=== PATIENT | male | born 1935 | race Hispanic/Latino ===

== ENCOUNTER 2017-06-09 08:32 | Inpatient (IN) | payer MEDICARE ==
[~2017-06-09] VITALS: Ht 170.2 cm; Wt 70.3 kg
[~2017-06-09 08:32] MED LIST: AMLO10TA2; ASPI-555 PO; CITA-106; DOXA1TAB2; FOLI1TAB15 PO; GABA-529; ISOS30TA6; LABE100T5; LEVO25TA54; OMEP40CA37; PHENY100; VALS320T2
[2017-06-09 09:04] LABS: APPEARANCE,URINE Clear (CLEAR); BILIRUBIN,URINE Negative (NEGATIVE); COLOR,URINE Yellow (YELLOW); GLUCOSE, URINE (UA) Negative (NEGATIVE); KETONES,URINE Negative (NEGATIVE); LEUKOCYTE ESTERASE ,URINE Small (NEGATIVE); NITRATE,URINE Negative (NEGATIVE); OCCULT BLOOD,URINE Nonhemolyzed Trace (NEGATIVE); PH,URINE 6.5 (5.0-8.0); PROTEIN,URINE Negative (NEGATIVE); UROBILINOGEN,URINE 0.2 mg/dL (0.2-1.0)
[2017-06-09 09:09] LABS: BACTERIA,URINE Rare /HPF (None Seen); SQUAMOUS EPITHELIAL CELL,UR Rare /HPF (0-2); WBC,URINE 0-1 /HPF (0-1)
[2017-06-09 09:53] LABS: BASOPHILS % (AUTO) 1.2 % (0.0-5.0); EOSINOPHILS % (AUTO) 2.9 % (0.0-8.0); HEMATOCRIT 41.5 % (42-54); LYMPHOCYTES % (AUTO) 21.3 % (21.0-51.0); MEAN CORPUSCULAR HEMOGLOBIN 31.6 pg (27.0-33.0); MEAN CORPUSCULAR HGB CONC 34.3 g/dL (32.0-36.0); MEAN CORPUSCULAR VOLUME 92.1 fL (79-99); MONOCYTES % (AUTO) 6.9 % (3.0-13.0); NEUTROPHILS % (AUTO) 67.7 % (40.0-77.0); NUCLEATED RED BLOOD CELLS 0.1 % (0.0-0.19); PLATELET COUNT (AUTO) 324 K/uL (130-400); RED BLOOD CELL COUNT(AUTO) 4.51 MIL/uL (4.50-6.20); RED CELL DISTRIBUTION WIDTH 12.9 % (11.0-15.5); WHITE BLOOD COUNT (AUTO) 9.4 K/uL (4.8-10.8)
[2017-06-09 10:18] LABS: CREATININE 0.9 mg/dL (0.5-1.5)
[2017-06-09] MEDS ORDERED: CEFTRIAXONE SODIUM 1 GM ONE (11:05)
[2017-06-09] MEDS ORDERED: SODIUM CHLORIDE 0.9% 1000ML 1,000 ML IV ONE (11:26)
[2017-06-09 12:39] VITALS: BP 162/70
[2017-06-09] MEDS ORDERED: LISI-613 PO (12:41)
[2017-06-09] MEDS ORDERED: CYAN10009 PO (12:41)
[2017-06-09 16:00] VITALS: BP 145/62
[2017-06-09 20:00] VITALS: BP 160/64
[2017-06-09 22:25] VITALS: BP 160/76
[2017-06-09] MEDS: ISOSORBIDE MONO 30MG TAB SR PO SCH (22:31)
[2017-06-09] MEDS: FOLIC ACID 1 MG TABLET PO SCH (22:31)
[2017-06-09] MEDS: LABETALOL HCL 100 MG TABLET PO SCH (22:32)
[2017-06-09] MEDS: GABAPENTIN 100 MG CAPSULE PO SCH (22:32)
[2017-06-09] MEDS: AMLODIPINE BESYLATE 5 MG TAB PO SCH (22:32)
[2017-06-09] MEDS: LISINOPRIL 20 MG TABLET PO SCH (22:32)
[2017-06-09] MEDS: SODIUM CHLORIDE 0.9% 1000ML 1,000 ML IV SCH (22:33)
[2017-06-10] VITALS (7 sets, daily range): BP systolic 131–159; BP diastolic 64–85
[2017-06-10] MEDS: SODIUM CHLORIDE 0.9% 1000ML 1,000 ML IV SCH ×3 (05:06→20:48)
[2017-06-10] MEDS: LEVOTHYROXINE 25 MCG TABLET PO SCH (06:41)
[2017-06-10] MEDS: CEFTRIAXONE SODIUM 1 GM IVP SCH (08:32)
[2017-06-10] MEDS: ASPIRIN 81 MG EC TAB PO SCH (08:33)
[2017-06-10] MEDS: PANTOPRAZOLE SODIUM 40 MG TABLET.DR PO SCH (08:33)
[2017-06-10] MEDS: DOXAZOSIN MESYLATE 2 MG TABLET PO SCH (08:33)
[2017-06-10] MEDS: PHENYTOIN SODIUM 100 MG ERCAP PO SCH (08:34)
[2017-06-10] MEDS: GABAPENTIN 100 MG CAPSULE PO SCH ×2 (08:34→20:43)
[2017-06-10] MEDS: CYANOCOBALAMIN (VITAMIN B-12) 1,000 MCG TABLET PO SCH (08:34)
[2017-06-10] MEDS: LABETALOL HCL 100 MG TABLET PO SCH ×2 (08:34→20:43)
[2017-06-10] MEDS: ISOSORBIDE MONO 30MG TAB SR PO SCH (20:42)
[2017-06-10] MEDS: FOLIC ACID 1 MG TABLET PO SCH (20:42)
[2017-06-10] MEDS: AMLODIPINE BESYLATE 5 MG TAB PO SCH (20:43)
[2017-06-10] MEDS: LISINOPRIL 20 MG TABLET PO SCH (20:44)
[2017-06-11] VITALS (27 sets, daily range): BP systolic 134–207; BP diastolic 55–89
[2017-06-11 06:40] LABS: INR 0.97 (0.85-1.15); PARTIAL THROMBOPLASTIN TIME 27.3 SEC (26.3-35.5); PROTHROMBIN TIME 10.2 SEC (9.6-11.6)
[2017-06-11] MEDS: LEVOTHYROXINE 25 MCG TABLET PO SCH (07:30)
[2017-06-11] MEDS: GABAPENTIN 100 MG CAPSULE PO SCH ×2 (09:00→21:08)
[2017-06-11] MEDS: CEFTRIAXONE SODIUM 1 GM IVP SCH (10:34)
[2017-06-11] MEDS: LABETALOL HCL 100 MG TABLET PO SCH ×2 (10:34→21:08)
[2017-06-11] MEDS: PHENYTOIN SODIUM 100 MG ERCAP PO SCH (10:34)
[2017-06-11] MEDS ORDERED: LACTATED RINGERS 1000ML 1,000 ML IV ONE (12:34)
[2017-06-11] MEDS ORDERED: PROPOFOL 10 MG/ML 20ML VIAL IV ONE (12:54)
[2017-06-11] MEDS ORDERED: FENTANYL CITRATE PF 50 MCG/1 ML 2ML VIAL ONE (12:57)
[2017-06-11] MEDS ORDERED: ISOVUE-370 50ML VIAL IV ONE (13:02)
[2017-06-11] MEDS ORDERED: HYDRALAZINE HCL 20 MG/ML VIAL ONE (13:54)
[2017-06-11] MEDS: DOXAZOSIN MESYLATE 2 MG TABLET PO SCH (15:04)
[2017-06-11] MEDS: PANTOPRAZOLE SODIUM 40 MG TABLET.DR PO SCH (15:04)
[2017-06-11] MEDS: CYANOCOBALAMIN (VITAMIN B-12) 1,000 MCG TABLET PO SCH (15:04)
[2017-06-11] MEDS: ASPIRIN 81 MG EC TAB PO SCH (15:04)
[2017-06-11] MEDS ORDERED: ACETAMINOPHEN-CODEINE 300/30MG TAB PO PRN (15:15)
[2017-06-11] MEDS: ISOSORBIDE MONO 30MG TAB SR PO SCH (21:07)
[2017-06-11] MEDS: FOLIC ACID 1 MG TABLET PO SCH (21:07)
[2017-06-11] MEDS: AMLODIPINE BESYLATE 5 MG TAB PO SCH (21:07)
[2017-06-11] MEDS: LISINOPRIL 20 MG TABLET PO SCH (21:08)
[2017-06-12 03:49] VITALS: BP 159/62
[2017-06-12 04:38] LABS: HEMATOCRIT 39.4 % (42-54); MEAN CORPUSCULAR HEMOGLOBIN 31.6 pg (27.0-33.0); MEAN CORPUSCULAR HGB CONC 34.4 g/dL (32.0-36.0); MEAN CORPUSCULAR VOLUME 91.8 fL (79-99); PLATELET COUNT (AUTO) 311 K/uL (130-400); RED BLOOD CELL COUNT(AUTO) 4.29 MIL/uL (4.50-6.20); RED CELL DISTRIBUTION WIDTH 12.7 % (11.0-15.5)
[2017-06-12 04:42] LABS: CREATININE 0.8 mg/dL (0.5-1.5); POTASSIUM 3.6 mmol/L (3.5-5.1)
[2017-06-12] MEDS: LEVOTHYROXINE 25 MCG TABLET PO SCH (06:42)
[2017-06-12] MEDS: CEFTRIAXONE SODIUM 1 GM IVP SCH (09:56)
[2017-06-12] MEDS: CYANOCOBALAMIN (VITAMIN B-12) 1,000 MCG TABLET PO SCH (09:57)
[2017-06-12] MEDS: LABETALOL HCL 100 MG TABLET PO SCH (09:57)
[2017-06-12] MEDS: ASPIRIN 81 MG EC TAB PO SCH (09:57)
[2017-06-12] MEDS: PHENYTOIN SODIUM 100 MG ERCAP PO SCH (09:57)
[2017-06-12] MEDS: GABAPENTIN 100 MG CAPSULE PO SCH (09:57)
[2017-06-12] MEDS: PANTOPRAZOLE SODIUM 40 MG TABLET.DR PO SCH (09:57)
[2017-06-12] MEDS: DOXAZOSIN MESYLATE 2 MG TABLET PO SCH (09:57)
== END 2017-06-12 11:05 | disposition home or self-care (01) | DRG 697 ==
LOC: EDH 08:32 → OBSVTOIN 10:55 → 3BH 10:55
PROVIDERS: ADMIT Family Medicine; ATTEND Family Medicine
PROC: 0T9B80Z Drainage of Bladder with Drainage Device, Via Natural or Artificial Opening Endoscopic (ICD-10-PCS; 2017-06-11)
PROC: 0T7D8ZZ Dilation of Urethra, Via Natural or Artificial Opening Endoscopic (ICD-10-PCS; principal; 2017-06-11 13:14)
DX: N35.9 Urethral stricture, unspecified (principal); G40.909 Epilepsy, unspecified, not intractable, without status epilepticus; E03.9 Hypothyroidism, unspecified; R33.8 Other retention of urine; N40.1 Benign prostatic hyperplasia with lower urinary tract symptoms; E78.5 Hyperlipidemia, unspecified; I10 Essential (primary) hypertension; I25.10 Atherosclerotic heart disease of native coronary artery without angina pectoris; I49.3 Ventricular premature depolarization; Z85.46 Personal history of malignant neoplasm of prostate; Z86.73 Personal history of transient ischemic attack (TIA), and cerebral infarction without residual deficits; Z90.79 Acquired absence of other genital organ(s); Z95.0 Presence of cardiac pacemaker
CPT/HCPCS: 36415; 74176; 76000; 80048; 81001; 84153; 85025; 85027; 85610; 85730; 87088; 93005; 93306; A4218; A4354; C1758; C1769; J0360; J0696; J2704; J3010; J7030; J7120; Q9967

== ENCOUNTER 2018-07-21 06:54 | Observation (INO) | payer MEDICARE ==
[~2018-07-21] VITALS: Ht 167.6 cm; Wt 66.1 kg
[~2018-07-21 06:54] MED LIST changes: -AMLO10TA2; +AMLO10TA7; -CITA-106; +CYAN10009 PO; +LISI-613 PO
[2018-07-21] MEDS ORDERED: ASPIRIN 325 MG TABLET ONE (07:21)
[2018-07-21 07:29] LABS: BASOPHILS % (AUTO) 1.1 % (0.0-5.0); EOSINOPHILS % (AUTO) 5.5 % (0.0-8.0); HEMATOCRIT 39.4 % (42-54); LYMPHOCYTES % (AUTO) 22.1 % (21.0-51.0); MEAN CORPUSCULAR HEMOGLOBIN 31.6 pg (27.0-33.0); MEAN CORPUSCULAR HGB CONC 33.6 g/dL (32.0-36.0); MONOCYTES % (AUTO) 8.2 % (3.0-13.0); NEUTROPHILS % (AUTO) 63.1 % (40.0-77.0); PLATELET COUNT (AUTO) 276 K/uL (130-400); RED BLOOD CELL COUNT(AUTO) 4.19 MIL/uL (4.50-6.20); RED CELL DISTRIBUTION WIDTH 13.3 % (11.0-15.5); WHITE BLOOD COUNT (AUTO) 7.9 K/uL (4.8-10.8)
[2018-07-21 07:34] LABS: POTASSIUM 3.8 mmol/L (3.5-5.1)
[2018-07-21 07:40] LABS: ALBUMIN 3.8 g/dL (3.5-5.0); BILIRUBIN,TOTAL 0.2 mg/dL (0.2-1.0); TOTAL PROTEIN, SERUM 7.8 g/dL (6.0-8.3)
[2018-07-21 08:31] LABS: B-TYPE NATRIURETIC PEPTIDE 146 pg/mL (0-100)
[2018-07-21] MEDS ORDERED: NITROGLYCERIN 1GM/1 INCH PACKET TD ONE (09:47)
[2018-07-21] MEDS: ENOXAPARIN SODIUM 30 MG/0.3 ML SQ SCH (11:37)
[2018-07-21] MEDS: SODIUM CHLORIDE 0.9% 1000ML 1,000 ML IV SCH (11:45)
[2018-07-21] MEDS ORDERED: NITROGLYCERIN 1GM/1 INCH PACKET TD PRN (11:45)
[2018-07-21] MEDS ORDERED: ENOXAPARIN SODIUM 30 MG/0.3 ML SQ ONE (12:43)
[2018-07-21 13:20] LABS: CREATINE KINASE, TOTAL 123 U/L (21-232); MYOGLOBIN 96 ng/mL (10-92); TROPONIN I < 0.04 ng/mL (0.00-0.06)
[2018-07-21 18:00] VITALS: BP 193/93
--- NOTE | 2018-07-21 19:04 | NUR ---
CARDIOLOGY CONSULT Dr. Mcnair came to evaluate patient./ Discussed with him plan of care; patient and family verbalized and demonstrated understanding.
[2018-07-21 19:27] VITALS: BP 155/76
[2018-07-21] MEDS ORDERED: ISOSORBIDE MONO 60 MG TAB.SR PO SCH (19:30)
[2018-07-21 19:59] LABS: CREATINE KINASE, TOTAL 107 U/L (21-232); MYOGLOBIN 78 ng/mL (10-92); TROPONIN I < 0.04 ng/mL (0.00-0.06)
[2018-07-21] MEDS ORDERED: CITA-107 PO (20:47)
[2018-07-21] MEDS ORDERED: LABETALOL HCL 100 MG TABLET PO SCH (21:00)
[2018-07-21] MEDS ORDERED: ISOSORBIDE MONONITRATE 20 MG TABLET PO SCH (21:00)
[2018-07-21] MEDS: VALSARTAN 320 MG PO SCH (21:00)
--- NOTE | 2018-07-21 22:00 | NUR ---
REMINDED PATIENT NPO AFTER MIDNIGHT, STRESS TEST IN A.M. PATIENT VERBALIZED UNDERSTANDING.
[2018-07-21] MEDS: PHENYTOIN SODIUM 100 MG ERCAP PO SCH (23:04)
[2018-07-21] MEDS: GABAPENTIN 100 MG CAPSULE PO SCH (23:05)
[2018-07-21 23:20] VITALS: BP 143/70
[2018-07-22] MEDS: METOPROLOL TARTRATE 25 MG TAB PO SCH ×4 (00:39→19:24)
[2018-07-22 03:55] VITALS: BP 132/82
[2018-07-22] MEDS: METOPROLOL TARTRATE 50 MG TAB PO SCH ×4 (06:00→18:00)
[2018-07-22] MEDS: LEVOTHYROXINE 50 MCG TABLET PO SCH (06:46)
[2018-07-22] MEDS: SODIUM CHLORIDE 0.9% 1000ML 1,000 ML IV SCH ×2 (06:49→21:05)
[2018-07-22 07:56] VITALS: BP 138/77
[2018-07-22] MEDS: ISOSORBIDE MONO 60 MG TAB.SR PO SCH (08:27)
[2018-07-22] MEDS: CITALOPRAM 20 MG TABLET PO SCH (08:27)
[2018-07-22] MEDS: ASPIRIN 81 MG EC TAB PO SCH (08:27)
[2018-07-22] MEDS: FOLIC ACID 1 MG TABLET PO SCH (08:27)
[2018-07-22] MEDS ORDERED: LISINOPRIL 20 MG TABLET PO SCH (09:00)
[2018-07-22] MEDS: GABAPENTIN 100 MG CAPSULE PO SCH ×2 (09:05→20:45)
[2018-07-22] MEDS: DOXAZOSIN MESYLATE 2 MG TABLET PO SCH (09:05)
[2018-07-22] MEDS: PANTOPRAZOLE SODIUM 40 MG TABLET.DR PO SCH (09:05)
[2018-07-22] MEDS: PHENYTOIN SODIUM 100 MG ERCAP PO SCH ×2 (09:05→20:45)
[2018-07-22] MEDS: ENOXAPARIN SODIUM 30 MG/0.3 ML SQ SCH (09:07)
--- NOTE | 2018-07-22 10:30 | NUR ---
REPORT TO Dewayne CHOUDHARY RN.
--- NOTE | 2018-07-22 10:45 | NUR ---
BILLYISCAN Patient taken for test at this time.
[2018-07-22] MEDS: PHARMACY COMMUNICATION MISC SCH ×2 (11:00→19:00)
[2018-07-22] MEDS: REGADENOSON 0.4 MG/5 ML PF SYG IVP SCH ×2 (11:30→14:14)
[2018-07-22 12:52] VITALS: BP 140/80
[2018-07-22 16:22] VITALS: BP 124/76
[2018-07-22 19:36] VITALS: BP 135/63
[2018-07-22] MEDS: VALSARTAN 320 MG PO SCH (20:32)
[2018-07-22 23:46] VITALS: BP 145/75
[2018-07-23 03:25] VITALS: BP 162/89
[2018-07-23] MEDS: LEVOTHYROXINE 50 MCG TABLET PO SCH (06:12)
[2018-07-23 07:57] VITALS: BP 157/92
--- NOTE | 2018-07-23 08:00 | NUR ---
ASSESSMENT PT IS AAOX4 DENIES CP DENIES SOB DENIES NV NO COMPLAINTS TOLERATED MEAL AND MEDS. PLAN DC HOME TODAY.
[2018-07-23] MEDS: ENOXAPARIN SODIUM 30 MG/0.3 ML SQ SCH (08:16)
[2018-07-23] MEDS: ISOSORBIDE MONO 60 MG TAB.SR PO SCH (08:17)
[2018-07-23] MEDS: GABAPENTIN 100 MG CAPSULE PO SCH (08:17)
[2018-07-23] MEDS: CITALOPRAM 20 MG TABLET PO SCH (08:17)
[2018-07-23] MEDS: ASPIRIN 81 MG EC TAB PO SCH (08:17)
[2018-07-23] MEDS: DOXAZOSIN MESYLATE 2 MG TABLET PO SCH (08:17)
[2018-07-23] MEDS: PHENYTOIN SODIUM 100 MG ERCAP PO SCH (08:17)
[2018-07-23] MEDS: PANTOPRAZOLE SODIUM 40 MG TABLET.DR PO SCH (08:17)
[2018-07-23] MEDS: FOLIC ACID 1 MG TABLET PO SCH (08:17)
[2018-07-23] MEDS ORDERED: METOPROLOL TARTRATE 50 MG TAB PO SCH (09:00)
[2018-07-23 09:52] VITALS: BP 142/76
--- NOTE | 2018-07-23 10:00 | NUR ---
NASUEA WITH VOMITING VS BP 142/[address] SHERIFF MADE AWARE. ORDERS RECEIVED, PLAN DC HOME LATER THIS AFTERNOON.
[2018-07-23] MEDS ORDERED: ONDANSETRON HCL 4 MG/2 ML VIAL IVP SCH (10:15)
[2018-07-23 11:29] VITALS: BP 134/60
--- NOTE | 2018-07-23 12:55 | NUR ---
DC PLAN VISITED WITH PATIENT. PATIENT LIVES WITH ALONE. INDEPENDENT ABLE TO PERFORM ADL'S. PATIENT HAS NO SERVICES OR DME'S. FEELS SAFE TO RETURN HOME. Addendum: 07/23/18 at 1256 by GRECIA CONCEPCION RN CM Amended: Links added.
--- NOTE | 2018-07-23 13:00 | NUR ---
STATUS NAUSEA SUBSIDED, NO VOMITING.
--- NOTE | 2018-07-23 13:26 | NUR ---
DC HOME PT AND FAMILY VERBALIZE DC INSTRUCTIONS UNDERSTANDING. AGREE TO TAKE SAME HOME MEDS, NO SCRIPTS. AGREE TO FOLLOW UP WITH DR SHERIFF ON SATURDAY AND DR LAWSON OUTPATIENT. ALL QUESTIONS ANSWERED, PIV REMOVED CATH TIP INTACT. TELE PACK REMOVED. ALL BELONGINGS GATHERED. ASSISTED DOWN VIA WC TO VEHICLE.
== END 2018-07-23 13:54 | disposition home or self-care (01) ==
LOC: EDH 06:54 → INTOOBSV 10:30 → EDHIP 10:30 → 2AH 17:34
PROVIDERS: ADMIT Family Medicine; ATTEND Family Medicine
DX: R07.89 Other chest pain (principal); I10 Essential (primary) hypertension; E03.9 Hypothyroidism, unspecified; E78.5 Hyperlipidemia, unspecified; G40.909 Epilepsy, unspecified, not intractable, without status epilepticus; I35.0 Nonrheumatic aortic (valve) stenosis; I49.3 Ventricular premature depolarization; N40.0 Benign prostatic hyperplasia without lower urinary tract symptoms; Z85.46 Personal history of malignant neoplasm of prostate; Z95.0 Presence of cardiac pacemaker
CPT/HCPCS: 36415; 71045; 78452; 80053; 82550 ×3; 83874 ×2; 83880; 84484 ×3; 85025; 93005 ×3; 93017; 93306; 96372; 96374; 99284; A9500 ×2; G0378 ×48; J1650 ×2; J2405; J2785; J7030

== ENCOUNTER 2019-02-11 12:49 | Emergency (ER) | payer MEDICARE ==
[~2019-02-11 12:49] MED LIST changes: +CITA-107 PO; +CYAN-52 PO; -CYAN10009 PO; +OMEP40CA13; -OMEP40CA37
[2019-02-11] MEDS ORDERED: ONDANSETRON HCL 4 MG/2 ML VIAL ONE (13:13)
[2019-02-11 13:22] LABS: BASOPHILS % (AUTO) 1.1 % (0.0-5.0); EOSINOPHILS % (AUTO) 6.1 % (0.0-8.0); HEMATOCRIT 44.8 % (42-54); LYMPHOCYTES % (AUTO) 32.3 % (21.0-51.0); MEAN CORPUSCULAR HEMOGLOBIN 32.7 pg (27.0-33.0); MEAN CORPUSCULAR HGB CONC 34.1 g/dL (32.0-36.0); MEAN CORPUSCULAR VOLUME 96.1 fL (79-99); MONOCYTES % (AUTO) 7.5 % (3.0-13.0); PLATELET COUNT (AUTO) 284 K/uL (130-400); RED BLOOD CELL COUNT(AUTO) 4.67 MIL/uL (4.50-6.20); WHITE BLOOD COUNT (AUTO) 9.3 K/uL (4.8-10.8)
[2019-02-11 13:28] LABS: CREATININE 1.1 mg/dL (0.5-1.5); POTASSIUM 3.9 mmol/L (3.5-5.1)
[2019-02-11 13:34] LABS: ALBUMIN 3.8 g/dL (3.5-5.0); BILIRUBIN,TOTAL 0.3 mg/dL (0.2-1.0)
[2019-02-11 13:39] LABS: INR 0.98 (0.85-1.15); PARTIAL THROMBOPLASTIN TIME 23.7 SEC (26.3-35.5); PROTHROMBIN TIME 10.3 SEC (9.6-11.6)
== END 2019-02-11 16:15 | disposition home or self-care (01) ==
LOC: EDH 12:49
DX: R53.1 Weakness (principal); R42 Dizziness and giddiness; R11.2 Nausea with vomiting, unspecified; I25.10 Atherosclerotic heart disease of native coronary artery without angina pectoris; E78.5 Hyperlipidemia, unspecified; I10 Essential (primary) hypertension; Z86.73 Personal history of transient ischemic attack (TIA), and cerebral infarction without residual deficits; Z87.891 Personal history of nicotine dependence
CPT/HCPCS: 36415; 70450; 71045; 80053; 82550; 84484; 85025; 85610; 85730; 93005; 96374; 99285; J2405

== ENCOUNTER 2019-10-28 19:34 | Inpatient (IN) | payer MEDICARE ==
[~2019-10-28] VITALS: Ht 170.2 cm; Wt 63.3 kg
[~2019-10-28 19:34] MED LIST changes: -ASPI-555 PO; +ASPI-556 PO
[2019-10-28 20:22] LABS: BASOPHILS % (AUTO) 0.2 % (0.0-5.0); HEMATOCRIT 48.6 % (42-54); LYMPHOCYTES % (AUTO) 6.9 % (21.0-51.0); MEAN CORPUSCULAR VOLUME 91.2 fL (79-99); MONOCYTES % (AUTO) 3.2 % (3.0-13.0); NEUTROPHILS % (AUTO) 89.1 % (40.0-77.0); PLATELET COUNT (AUTO) 168 K/uL (130-400); RED BLOOD CELL COUNT(AUTO) 5.33 MIL/uL (4.50-6.20); RED CELL DISTRIBUTION WIDTH 12.6 % (11.0-15.5)
[2019-10-28 20:34] LABS: POTASSIUM 3.9 mmol/L (3.5-5.1)
[2019-10-28 20:35] LABS: INR 1.11 (0.85-1.15); PARTIAL THROMBOPLASTIN TIME 29.1 SEC (26.3-35.5); PROTHROMBIN TIME 11.9 SEC (9.6-11.6)
[2019-10-28 20:38] LABS: ALBUMIN 2.4 g/dL (3.5-5.0); BILIRUBIN,TOTAL 1.1 mg/dL (0.2-1.0); TOTAL PROTEIN, SERUM 8.2 g/dL (6.0-8.3)
[2019-10-28] MEDS ORDERED: DEXAMETHASONE SOD PHOSPHATE 4 MG/ML 1ML VIAL ONE (21:00)
[2019-10-28] MEDS ORDERED: CEFTRIAXONE SODIUM 1 GM ONE (21:00)
[2019-10-28] MEDS ORDERED: SODIUM CHLORIDE 0.9% 100 ML IV ONE (21:01)
[2019-10-28] MEDS ORDERED: AZITHROMYCIN 500MG+NS 250ML 250 ML IV ONE ×2 (21:08→21:29)
[2019-10-28] MEDS: LACTATED RINGERS 1000ML 1,000 ML IV SCH (22:34)
[2019-10-28] MEDS ORDERED: NITROGLYCERIN 0.4 MG SL TAB SL PRN (22:45)
[2019-10-28] MEDS ORDERED: LACTULOSE 20 GM/30 ML UDCUP PO PRN (22:45)
[2019-10-28] MEDS ORDERED: MAG HYDROX/AL HYDROX/SIMETH ES 30 ML SUSP UDCUP PO PRN (22:45)
[2019-10-28] MEDS ORDERED: ONDANSETRON HCL 4 MG/2 ML VIAL IV PRN (22:45)
[2019-10-28] MEDS ORDERED: DIPHENHYDRAMINE HCL 25 MG CAPSULE PO PRN (22:45)
[2019-10-28] MEDS ORDERED: MORPHINE SULFATE 4 MG/1ML SYG IV PRN (22:45)
[2019-10-28] MEDS ORDERED: MAG HYDROX/AL HYDROX/SIMETH 30 ML, LIDOCAINE HCL 2% VISCOUS 30 ML, DIPHENHYDRAMINE HCL ... PO PRN ×3 (22:45)
[2019-10-28] MEDS ORDERED: DiphenhydrAMINE HCL 50 MG/ML VIAL IV PRN (22:45)
[2019-10-28] MEDS ORDERED: MORPHINE SULFATE 2 MG/ML 1ML SYG IV PRN (22:45)
[2019-10-28] MEDS ORDERED: ZOLPIDEM TARTRATE 5 MG TAB PO PRN (22:45)
[2019-10-28] MEDS ORDERED: LIDOCAINE HCL 2% VISCOUS 30 ML, MAG HYDROX/AL HYDROX/SIMETH 30 ML, BELLADONNA-PHENOBARB... PO PRN ×3 (22:45)
[2019-10-28] MEDS ORDERED: GUAIFENESIN-DM 200/20 MG 10 ML PO PRN (22:45)
[2019-10-28] MEDS ORDERED: ACETAMINOPHEN 325 MG TAB PO PRN ×2 (22:45)
[2019-10-28 22:48] LABS: CRP QUANTITATIVE 254.6 mg/L (0.00-9.0)
[2019-10-28] MEDS ORDERED: IOHEXOL-350 75 ML VIAL IV ONE (23:05)
[2019-10-29] VITALS (7 sets, daily range): BP systolic 105–154; BP diastolic 69–98
[2019-10-29 00:02] LABS: TROPONIN I 0.57 ng/mL (0.00-0.06)
[2019-10-29] MEDS ORDERED: ASPIRIN 325MG EC TAB 325 MG TABLET.DR PO SCH ×2 (01:15→09:00)
[2019-10-29] MEDS ORDERED: HYDRALAZINE HCL 20 MG/ML VIAL IV PRN (01:15)
[2019-10-29] MEDS ORDERED: DEXAMETHASONE SOD PHOSPHATE 4 MG/ML 1ML VIAL IVP SCH (02:00)
[2019-10-29] MEDS ORDERED: ERGOCALCIFEROL (VITAMIN D2) 50,000 UNIT CAPSULE PO ONE (02:00)
[2019-10-29] MEDS ORDERED: CEFTRIAXONE SODIUM 1 GM IVP SCH (02:00)
[2019-10-29] MEDS ORDERED: PHARMACY COMMUNICATION**REMDESIVIR ORDER MISC SCH (03:15)
[2019-10-29 06:29] LABS: POTASSIUM 3.4 mmol/L (3.5-5.1)
[2019-10-29] MEDS: LACTATED RINGERS 1000ML 1,000 ML IV SCH (06:30)
[2019-10-29] MEDS: LEVOTHYROXINE 50 MCG TABLET PO SCH (06:30)
[2019-10-29 06:46] LABS: ALBUMIN 2.5 g/dL (3.5-5.0); CREATININE 0.8 mg/dL (0.5-1.5); PHENYTOIN (DILANTIN) 1.3 mcg/mL (10.0-20.0); THYROID STIMULATING HORMONE 2.83 uIU/mL (0.36-3.74); TOTAL PROTEIN, SERUM 8.4 g/dL (6.0-8.3)
[2019-10-29 06:53] LABS: CRP QUANTITATIVE 16.6 mg/L (0.00-9.0)
[2019-10-29 07:02] LABS: TROPONIN I 0.54 ng/mL (0.00-0.06)
[2019-10-29] MEDS ORDERED: POTASSIUM CHLORIDE 10% ELIXIR 20 MEQ/15 ML UDCUP PO PRN (07:15)
[2019-10-29] MEDS ORDERED: LIDOCAINE HCL-MPF 1% 2ML VIAL IV PRN (07:15)
[2019-10-29] MEDS ORDERED: POTASSIUM CHLORIDE 20MEQ/100ML 100 ML IV PRN (07:15)
[2019-10-29] MEDS ORDERED: POTASSIUM CHLORIDE 20 MEQ ERTAB PO PRN (07:15)
--- NOTE | 2019-10-29 07:38 | NUR ---
reported to dr [place]driguez [place] [id number] and total ck of 521. ordered lovenox 0.5 per kg.
[2019-10-29] MEDS ORDERED: PHARMACY COMMUNICATION MISC STA (07:48)
[2019-10-29] MEDS ORDERED: ENOXAPARIN SODIUM 30 MG/0.3 ML SQ SCH (08:45)
[2019-10-29] MEDS ORDERED: ENOXAPARIN SODIUM 80 MG/0.8 ML SQ SCH (09:00)
[2019-10-29] MEDS ORDERED: ENOXAPARIN SODIUM 40 MG/0.4 ML SYRINGE SQ SCH (09:00)
[2019-10-29] MEDS: FAMOTIDINE/PF 20 MG/2 ML VIAL IV SCH ×2 (09:14→22:21)
[2019-10-29] MEDS: DEXAMETHASONE SOD PHOSPHATE 4 MG/ML 1ML VIAL IVP SCH (09:14)
[2019-10-29] MEDS: ZINC SULFATE 220 CAPSULE PO SCH (09:15)
[2019-10-29] MEDS: ASCORBIC ACID 500 MG TAB PO SCH (09:15)
[2019-10-29] MEDS: ASPIRIN 81MG TAB.CHEW PO SCH (09:15)
[2019-10-29] MEDS ORDERED: PHARMACY COMMUNICATION MISC SCH (09:15)
[2019-10-29] MEDS: DOXYCYCLINE HYCLATE 100 MG TABLET PO SCH ×2 (09:15→22:21)
[2019-10-29] MEDS: CEFTRIAXONE SODIUM 1 GM IVP SCH ×2 (09:16→22:21)
[2019-10-29] MEDS ORDERED: ERGOCALCIFEROL (VITAMIN D2) 50,000 UNIT CAPSULE PO SCH ×2 (09:20→15:30)
--- NOTE | 2019-10-29 10:30 | NUR ---
spoke to the niece updated the niece of the status of the patient. also notified her that the charge nurse found the patient unresponsive and desating to 18% and look like she tried to take the cpap off.
--- NOTE | 2019-10-29 13:09 | NUR ---
THEA PLAN PATIENT IN COVID UNIT. CHECKED ON PATIENT BREATHING HEAVY. CALLED NUMBER ON FACE SHEET NO ANSWER. NAKUL WILL CONTINUE TO FOLLOW. Addendum: 10/29/19 at 1310 by GRECIA CONCEPCION RN CM Amended: Links added.
[2019-10-29] MEDS: HYDROCODONE/ACETAMINOPHEN 5/325 MG TAB PO PRN ×2 (13:15→22:23)
[2019-10-29] MEDS: ENOXAPARIN SODIUM 60 MG/0.6 ML SQ SCH ×2 (13:30→22:21)
--- NOTE | 2019-10-29 13:59 | NUR ---
CHART CHECK COMPLETED. Pt IS AN 84 Y.O. MALE ADMITTED SECONDARY TO COVID 19 PNEUMONIA,HYPOXEMIA . Pt HAS A PAST MEDICAL HISTORY SIGNIFICANT FOR HYPERTENSION, HYPERLIPIDEMIA, CAD, PACEMAKER, HYPERTHYROIDISM, ATRIAL FIBRILLATION, CVA, AND SEIZURES. Pt CURRENTLY ON CLEAR LIQUID DIET AND 5L O2 VIA NASAL CANNULA. PLEASE REQUEST FORMAL SKILLED SPEECH/SWALLOW EVALUATION IF Pt PRESENTS WITH +S/S OF ASPIRATION SUCH COUGH RESPONSE, THROAT CLEAR, OR WET VOCAL QUALITY DURING P.O. Addendum: 10/29/19 at 1401 by YUE MOTT, [facility] Amended: Links added.
[2019-10-29] MEDS: AMLODIPINE BESYLATE 5 MG TAB PO SCH (15:26)
[2019-10-29] MEDS: GABAPENTIN 100 MG CAPSULE PO SCH ×2 (15:26→22:21)
[2019-10-29] MEDS ORDERED: SODIUM CHLORIDE 0.9% 250 ML IV ONE (15:30)
[2019-10-29 16:20] LABS: TROPONIN I 0.63 ng/mL (0.00-0.06)
--- NOTE | 2019-10-29 16:21 | NUR ---
reported to dr. rodriguez the total ck of 1324 and troponin of 0.63. no orders was given.
--- NOTE | 2019-10-29 18:56 | NUR ---
reported to dr. rodriguez the result of covid rapid test came back positive.
[2019-10-29] MEDS ORDERED: PHENYTOIN SODIUM 100 MG ERCAP PO SCH (20:00)
[2019-10-29] MEDS ORDERED: LISINOPRIL 20 MG TABLET PO SCH (21:00)
--- NOTE | 2019-10-29 21:07 | NUR ---
Completed morning assessment and found patient in pain, the patients upper and lower extremity was cold and pale. Assessment of peripheral pulses were positive on the left side for brachial and radial arm, and femoral, popliteal, and dorsalis pedis pulses all +1 and +2. There were no pulses found on the lower extremity of the right side after assessing for femoral, popliteal, and dorsalis pedis and bruising was noted on the right upper thigh. placed call to hospitalist and recieved a call back from Jenniffer LAY. She ordered an arterial study, as well as a femur XR and Hip XR. Pt appears to be more lethargic than previously at shift change. Will continue to monitor.
[2019-10-30] MEDS ORDERED: HEPARIN 25000 UNITS/250 ML D5W 250 ML IV SCH ×3 (02:00→20:00)
--- NOTE | 2019-10-30 02:19 | NUR ---
PLACED CALL TO DR. NUNES FOR A STAT CONSULT FOR ANGIOGRAM AT 0149, 0208, AND 0219. AWAITING A CALL BACK. Addendum: 10/30/19 at 0242 by VERÓNICA MYERS RN RN DR. NUNES WAS NOT THE DOCTOR CHIEF MEDICAL PHYSICIST. PAGED IN ERROR. CORRECT DOCTOR CONTACTED. WILL CONTINUE TO MONITOR
[2019-10-30 03:11] LABS: BASOPHILS % (AUTO) 0.2 % (0.0-5.0); HEMATOCRIT 50.1 % (42-54); LYMPHOCYTES % (AUTO) 4.6 % (21.0-51.0); MEAN CORPUSCULAR HEMOGLOBIN 30.9 pg (27.0-33.0); MEAN CORPUSCULAR HGB CONC 34.7 g/dL (32.0-36.0); MONOCYTES % (AUTO) 6.9 % (3.0-13.0); NEUTROPHILS % (AUTO) 87.5 % (40.0-77.0); PLATELET COUNT (AUTO) 341 K/uL (130-400); RED BLOOD CELL COUNT(AUTO) 5.63 MIL/uL (4.50-6.20); RED CELL DISTRIBUTION WIDTH 12.6 % (11.0-15.5); WHITE BLOOD COUNT (AUTO) 18.8 K/uL (4.8-10.8)
[2019-10-30 03:23] LABS: INR 1.16 (0.85-1.15); PROTHROMBIN TIME 12.5 SEC (9.6-11.6)
[2019-10-30 03:44] LABS: ALBUMIN 2.4 g/dL (3.5-5.0); BILIRUBIN,TOTAL 1.5 mg/dL (0.2-1.0); CREATININE 0.9 mg/dL (0.5-1.5); CRP QUANTITATIVE 151.9 mg/L (0.00-9.0); MAGNESIUM 2.1 mg/dL (1.80-2.40); PHOSPHORUS 3.3 mg/dL (2.5-4.9); POTASSIUM 3.6 mmol/L (3.5-5.1); TOTAL PROTEIN, SERUM 7.9 g/dL (6.0-8.3)
[2019-10-30] MEDS ORDERED: HEPARIN SODIUM 5000UNIT/ML 1ML VIAL ONE (03:47)
[2019-10-30 03:56] LABS: ABG HCO3 20.5 mmol/L (21.0-28.0); ABG OXYGEN SATURATION 96.9 % (95.0-99.0); ABG PCO2 30 mmHg (35-48)
[2019-10-30 04:35] VITALS: BP 101/72
--- NOTE | 2019-10-30 04:38 | NUR ---
COORDINATING CARE WITH DR. HARDWICK FOR THE PT TO RECEIVE AN ANGIOGRAM. WE WERE UNABLE TO COME TO A CONCLUSION FOR A PLAN OF CARE FOR THIS PATIENT. DR. HARDWICK ATTEMPTED TO CONTACT MULTIPLE CARDIOLOGISTS WITH NO SUCCESS. ORDERS WERE PLACED AND CARRIED OUT FOR A HEPARIN GTT TO BE STARTED. PT IS IN BED RESTING, WILL CONTINUE TO MONITOR.
[2019-10-30] MEDS: LEVOTHYROXINE 50 MCG TABLET PO SCH (05:44)
[2019-10-30 07:00] VITALS: BP 164/72
--- NOTE | 2019-10-30 07:44 | NUR ---
DR. RENNY LAWSON WAS CALLED SINCE HE PUT IN A PACEMAKER IN PATIENT, UNFORTUNATELY HE DOESN'T HAVE PRIVILE[place] [facility] [place], HE CALLED DR. COTO TO COME AND SEE HIS PATIENT. PER DR. RENNY COTO WILL COME AND SEE PATIENT TODAY.
--- NOTE | 2019-10-30 07:46 | NUR ---
PER ROSA CABRERA SPOKE WITH ROSA CABRERA STATED THAT DR. ELENA WROTE A NOTE REGARDING PT. NO NOTE FOUND FROM DR. ELENA.
--- NOTE | 2019-10-30 07:53 | NUR ---
DR. TAPIA CAME TO SEE PT. AT BEDSIDE, WILL TRY AND SPEAK WITH DR. COTO WILL WAIT FOR FURTHER ORDERS
--- NOTE | 2019-10-30 08:05 | NUR ---
DR. TAPIA SPOKE WITH NNAMDI, WILL DO A FEW CASES AT [facility] THEN COME AND SEE PATIENT. DR. TAPIA WILL ALL PATIENT FAMILY (BRENDA)TO GIVE UPDATE. NO NEW ORDERS AT THIS TIME. WILL CONTINUE TO MONITOR PATIENT.
--- NOTE | 2019-10-30 08:15 | NUR ---
BESIDE REPORT RECEIVED REPORT FROM VERÓNICA VANCE RIGHT SHIFT. PT HAS MOTTLED RIGHT LEG FROM THIGHT TO FOOT WITH PAIN, COLD, WEAK PULSE TO THE RIGHT FEMORAL. NO PULSES FOUND TO THE POPLITEAL OR PEDALIS ON RIGHT FOOT. PER VERÓNICA VANCE ER TRYING TO CALL REELING MACHINE OPERATOR WITH NO SUCCUSSES AT NIGHT. PT ON HEPARIN PROTOCOL PUMP @ 17 UNITS/KG NEST PTT. DUE @ 10:00 AM
[2019-10-30] MEDS: DOXYCYCLINE HYCLATE 100 MG TABLET PO SCH (09:28)
[2019-10-30] MEDS: ASPIRIN 81MG TAB.CHEW PO SCH (09:28)
[2019-10-30] MEDS: ZINC SULFATE 220 CAPSULE PO SCH (09:28)
[2019-10-30] MEDS: FAMOTIDINE/PF 20 MG/2 ML VIAL IV SCH (09:28)
[2019-10-30] MEDS: CEFTRIAXONE SODIUM 1 GM IVP SCH (09:28)
[2019-10-30] MEDS: ASCORBIC ACID 500 MG TAB PO SCH (09:28)
[2019-10-30] MEDS: DEXAMETHASONE SOD PHOSPHATE 4 MG/ML 1ML VIAL IVP SCH (09:29)
[2019-10-30] MEDS: GABAPENTIN 100 MG CAPSULE PO SCH (09:29)
[2019-10-30 10:24] LABS: INR 1.18 (0.85-1.15); PROTHROMBIN TIME 12.7 SEC (9.6-11.6)
[2019-10-30] MEDS ORDERED: SODIUM CHLORIDE 0.9% 1000ML 1,000 ML IV SCH ×2 (10:57→15:40)
[2019-10-30 11:00] VITALS: BP 158/118
[2019-10-30] MEDS ORDERED: DiphenhydrAMINE HCL 50 MG/ML VIAL IVP PRN (11:00)
--- NOTE | 2019-10-30 11:00 | NUR ---
DR. NNAMDI HICKEY CAME TO SEE PT AT BEDSIDE AND WILL DO A RIGHT PERIHERNIAL ANGIOGRAM FOR ACUTE RIGHT LEG ISCHEMIA. ACCESS FROM THE LEFT LOWER EXT.
[2019-10-30] MEDS ORDERED: LIDOCAINE HCL 2% 20ML ONE (11:01)
[2019-10-30] MEDS ORDERED: HEPARIN SODIUM 1000UNIT/ML 10ML VIAL ONE (11:01)
[2019-10-30] MEDS ORDERED: IODIXANOL 320 MG/ML 100 ML VIAL ONE ×2 (11:01→13:14)
--- NOTE | 2019-10-30 11:01 | NUR ---
RIGHT PERIPHERAL ANGIO CONSENT WAS DONE OVER THE PHONE WITH DAUGHTER (CASSANDRA ROTH) 2ND WITNESS SHANNEN VANCE MRS. TRUJILLO AGREED TO ANGIOGRAM AND DR. COTO SPOKE WITH FAMILY.
--- NOTE | 2019-10-30 11:38 | NUR ---
ANGIOGRAM PT WENT FOR PERIPHERAL ANGIOGRAM TO THE RIGHT LEG IN [employer] MIXER
[2019-10-30] MEDS ORDERED: DiphenhydrAMINE HCL 50 MG/ML VIAL ONE (12:03)
[2019-10-30] MEDS ORDERED: FENTANYL CITRATE PF 50 MCG/1 ML 2ML VIAL ONE ×2 (12:04→15:33)
[2019-10-30] MEDS: AMLODIPINE BESYLATE 5 MG TAB PO SCH (15:00)
[2019-10-30] MEDS ORDERED: NITROGLYCERIN 2 MG/VIAL VIAL IV ONE (15:07)
[2019-10-30] MEDS ORDERED: METOPROLOL TARTRATE 1 MG/ML 5ML VIAL IV ONE (15:10)
[2019-10-30 15:15] LABS: ABG BASE EXCESS -3.4 mmol/L (-2.0-3.0); ABG HCO3 18.4 mmol/L (21.0-28.0); ABG OXYGEN SATURATION 97.8 % (95.0-99.0); ABG PCO2 26 mmHg (35-48)
[2019-10-30] MEDS ORDERED: TICAGRELOR 90 MG TABLET ONE (15:21)
[2019-10-30] MEDS ORDERED: ASPIRIN 325MG EC TAB 325 MG TABLET.DR PO ONE (15:21)
[2019-10-30] MEDS ORDERED: PHARMACY COMMUNICATION MISC SCH (16:00)
--- NOTE | 2019-10-30 16:09 | NUR ---
DC PLAN CALLED PATIENT DAUGHTER BRENDA. PATIENT LIVES WITH HER. PROVIDER THROUGH [place] VISITING NURSE 21 HRS. HAS A CANE AND NEBULIZER. PLAN FOR PATIENT TO RETURN HOME. VIA PRIVATE VEHICLE. Addendum: 10/30/19 at 1613 by GRECIA CONCEPCION RN CM Amended: Links added.
[2019-10-30 16:35] VITALS: BP 102/111
--- NOTE | 2019-10-30 16:43 | NUR ---
RECEIVED PT FROM RUBY ON RAILS DEVELOPER PT IS A/A X 1, CONTINUES TO MOAN AND MOVE RIGHT LEG WILL BE A ONE TO ONE TONIGHT. RT. UPPER EXTREMELY MOTTLED, RT HAND COLD AND PURPLE, NO PULSE TO RADIAL OR ULNAR, BRACHIAL PULSE VERY FAINT WITH DOPPLER. CALLED DR. TAPIA, AND ORDER IS TO ORDER ARTERIAL DOPPLER OF RT. UPPER EXT.
[2019-10-30 16:50] VITALS: BP_SYST 166; BP_SYST 205; BP_DIAS 116; BP_DIAS 82
[2019-10-30] MEDS ORDERED: TICAGRELOR 90 MG TABLET PO SCH ×2 (16:59→23:30)
[2019-10-30] MEDS ORDERED: HYDROMORPHONE HCL 0.5 MG/0.5 ML ML IVP PRN (17:00)
[2019-10-30] MEDS ORDERED: HYDROMORPHONE 1 MG/1 ML AMP IVP PRN (17:15)
--- NOTE | 2019-10-30 17:21 | NUR ---
NGT ATTEMPTED SEVERAL TIMES AND GAVE HIM TIME TO RECOVER TO INSERT NGT PT WASN'T ABLE TO TOLERATE. PT DESTAT TO 78% SP02.
[2019-10-30 17:22] VITALS: BP 202/95
--- NOTE | 2019-10-30 17:58 | NUR ---
DNR SPOKE TO DAUGHTER RIVER ROTH AND EXPLAIN FATHER STATUS AND SHE DECIDED TO MAKE FATHER A DNR AFTER SPEAKING WITH HER SIBLINGS. PROSPER ESTRELLA RN WHO IS CHARGE WAS 2ND WITNESS WITH PHONE CONVERSATION FOR DNR.
--- NOTE | 2019-10-30 19:52 | NUR ---
PATIENT HAS AT 1948
[2019-10-31] MEDS ORDERED: CLOPIDOGREL BISULFATE 75 MG TAB PO SCH (09:00)
== END 2019-10-30 19:49 | disposition expired | DRG 166 ==
LOC: EDH 19:34 → EDHIP 22:34 → 2DH 10-29 00:51
PROVIDERS: ADMIT Internal Medicine; ATTEND Internal Medicine
PROC: XW13325 Transfusion of Convalescent Plasma (Nonautologous) into Peripheral Vein, Percutaneous Approach, New Technology Group 5 (ICD-10-PCS; principal; 2019-10-29)
PROC: 5A09357 Assistance with Respiratory Ventilation, Less than 24 Consecutive Hours, Continuous Positive Airway Pressure (ICD-10-PCS; 2019-10-29)
PROC: 047C3ZZ Dilation of Right Common Iliac Artery, Percutaneous Approach (ICD-10-PCS; 2019-10-30)
PROC: 047H3ZZ Dilation of Right External Iliac Artery, Percutaneous Approach (ICD-10-PCS; 2019-10-30)
PROC: 047K3ZZ Dilation of Right Femoral Artery, Percutaneous Approach (ICD-10-PCS; 2019-10-30)
PROC: 047M3ZZ Dilation of Right Popliteal Artery, Percutaneous Approach (ICD-10-PCS; 2019-10-30)
PROC: 047T3ZZ Dilation of Right Peroneal Artery, Percutaneous Approach (ICD-10-PCS; 2019-10-30)
PROC: 047R3ZZ Dilation of Right Posterior Tibial Artery, Percutaneous Approach (ICD-10-PCS; 2019-10-30)
PROC: 047K3DZ Dilation of Right Femoral Artery with Intraluminal Device, Percutaneous Approach (ICD-10-PCS; 2019-10-30)
PROC: B41F1ZZ Fluoroscopy of Right Lower Extremity Arteries using Low Osmolar Contrast (ICD-10-PCS; 2019-10-30)
PROC: 3E03317 Introduction of Other Thrombolytic into Peripheral Vein, Percutaneous Approach (ICD-10-PCS; 2019-10-30)
DX: U07.1 COVID-19 (principal); J12.89 Other viral pneumonia; J96.01 Acute respiratory failure with hypoxia; J96.02 Acute respiratory failure with hypercapnia; D68.59 Other primary thrombophilia; I48.20 Chronic atrial fibrillation, unspecified; I70.92 Chronic total occlusion of artery of the extremities; M62.82 Rhabdomyolysis; I74.3 Embolism and thrombosis of arteries of the lower extremities; I70.201 Unspecified atherosclerosis of native arteries of extremities, right leg; I25.10 Atherosclerotic heart disease of native coronary artery without angina pectoris; I48.91 Unspecified atrial fibrillation; R79.89 Other specified abnormal findings of blood chemistry; E78.5 Hyperlipidemia, unspecified; E03.9 Hypothyroidism, unspecified; E11.51 Type 2 diabetes mellitus with diabetic peripheral angiopathy without gangrene; G40.909 Epilepsy, unspecified, not intractable, without status epilepticus; I11.0 Hypertensive heart disease with heart failure; I50.9 Heart failure, unspecified; R29.6 Repeated falls; W01.0XXA Fall on same level from slipping, tripping and stumbling without subsequent striking against object, initial encounter; Y93.89 Activity, other specified; Y92.89 Other specified places as the place of occurrence of the external cause; Y99.8 Other external cause status; Z95.0 Presence of cardiac pacemaker; Z87.891 Personal history of nicotine dependence; Z79.82 Long term (current) use of aspirin; Z86.73 Personal history of transient ischemic attack (TIA), and cerebral infarction without residual deficits; Z80.8 Family history of malignant neoplasm of other organs or systems; Z82.3 Family history of stroke; Z83.3 Family history of diabetes mellitus; Z82.49 Family history of ischemic heart disease and other diseases of the circulatory system
CPT/HCPCS: 36415; 36430; 36600; 37184; 37185; 37220; 37222; 37226; 37228; 71045; 71275; 73522; 73552; 73590; 75710; 80053; 80185; 82550; 82728; 82803; 83605; 83615; 83735; 83874; 83880; 84100; 84145; 84443; 84484; 85025; 85347; 85378; 85610; 85730; 86140; 86850; 86900; 86901; 86927; 87040; 87426; 93005; 93926; 93970; 99291; C1725; C1757; C1760; C1769; C1876; C1893; C1894; G0378; J0456; J0696; J1100; J1170; J1200; J1644; J1650; J2270; J3010; J3490; J7050; J7120; Q9967